=== PATIENT | female | born 1970 | race Two or more races ===

== ENCOUNTER 2019-06-27 18:53 | Emergency (ER) | payer SELFPAY ==
[~2019-06-27] VITALS: Ht 149.9 cm; Wt 55.8 kg
[~2019-06-27 18:53] MED LIST: AMOXICILLIN500 MG ORAL; BENADRYL50 MG ORAL; CLINDAMYCIN HC150 MG ORAL; PREDNISONE20 MG ORAL; RANITIDINE HCL150 MG ORAL
[2019-06-27] MEDS ORDERED: Excedrin Migraine tab ORAL ONE (19:15)
[2019-06-27] MEDS ORDERED: DiphenhydrAMINE 25mg/10ml Elixir ORAL ONE (19:15)
--- NOTE | 2019-06-27 19:20 | NUR ---
ED Nurse Note: pt presents to ED c/o ELDER x 2 weeks. pt states that the pain is mainly in the back of her head on the L side and got worse on Saturday and has not gone away since then. pt reports taking advil at home for the pain with some relief of symptoms. pt also c/o nausea without vomiting.
[2019-06-27 19:23] VITALS: BP 107/57
--- NOTE | 2019-06-27 19:25 | NUR ---
ED Nurse Note: xray at pt bedside
--- NOTE | 2019-06-27 20:05 | Diagnostic Imaging Report ---
EXAM: XR Chest, 1 View CLINICAL HISTORY: PAIN TECHNIQUE: Frontal view of the chest. COMPARISON: No relevant prior studies available. FINDINGS: Lungs: Unremarkable. No consolidation. Pleural space: Unremarkable. No pneumothorax. Heart: Unremarkable. No cardiomegaly. Mediastinum: Unremarkable. Bones/joints: Unremarkable. IMPRESSION: Normal chest x-ray.
--- NOTE | 2019-06-27 20:10 | Emergency Room Report ---
History of Present Illness General Chief Complaint: Headache Source: Patient Present Illness HPI 49-year-old female with history of type 2 diabetes currently controlled here complaining of 2 weeks of left-sided headache now radiating to posterior head and neck as well as going down left arm and left lower extremity. Denies any tingling or numbness. Denies photophobia and blurry vision. Reports that she wears eyeglasses and is up-to-date with her visits to supervisor paper testing. Complains of 1 day of palpitations however denies chest pain or shortness of breath. Denies abdominal pain however complains of nausea with onset of her intermittent headaches. Reports that the headaches are scattered throughout the day rating her pain 10 out of 10. Denies head injury. Reports that previously in the past year she has been having multiple episodes of these headaches however in the past 2 weeks it has been exacerbating. Has not yet addressed that with her primary care doctor. Has been taking Advil with minimal relief. Denies recent URI symptoms. Denies all other associated symptoms. Denies tobacco smoke, drug use, alcohol intake. Denies having any aura. Denies unilateral and generalized weakness. No motor or sensory deficits noted. Neurovascularly intact. Denies vertigo, tinnitus, hearing loss , and other associated symptoms. Allergies: Coded Allergies: No Known Allergies (Unverified , 03/22/14) Patient History Past Medical History: see triage record Past Surgical History: unable to obtain Pertinent Family History: none Last Menstrual Period: 06/20/19 Now: No : 5 Para: 2 Immunizations: UTD Reviewed Nursing Documentation: PMH: Agreed; PSxH: Agreed Nursing Documentation-PMH Past Medical History: No Stated History Review of Systems All Other Systems: negative except mentioned in HPI Physical Exam Vital Signs Date Time Temp Pulse Resp B/P (MAP) Pulse Ox O2 Delivery O2 Flow Rate FiO2 06/27/19 18:58 98.1 68 18 107/57 (74) 95 Room Air Sp02 EP Interpretation: reviewed, normal General Appearance: no apparent distress, alert, GCS 15, non-toxic Head: normocephalic, atraumatic Eyes: bilateral eye normal inspection, bilateral eye PERRL ENT: hearing grossly normal, normal pharynx, no angioedema, normal voice Neck: full range of motion, thyroid normal, no meningismus, supple/symm/no masses Respiratory: chest non-tender, lungs clear, normal breath sounds, no rhonchi, no wheezing, speaking full sentences Cardiovascular #1: regular rate, rhythm, no edema, no murmur, normal capillary refill Cardiovascular #2: 2+ carotid (R), 2+ carotid (L) Gastrointestinal: normal bowel sounds, non tender, soft, non-distended, no guarding, no rebound Rectal: deferred Genitourinary: no CVA tenderness Musculoskeletal: back normal, no calf tenderness, gait/station normal Neurologic: alert, oriented, distal neuro normal, oriented x3, sensory intact, speech normal Psychiatric: judgement/insight normal, memory normal, mood/affect normal, no suicidal/homicidal ideation Skin: no rash Lymphatic: no adenopathy Medical Decision Making PA Attestation All my diagnosis and treatment plans were reviewed ad discussed with my supervising physician Dr. Chawla Diagnostic Impression: Primary Impression: Migraine headache ER Course 49-year-old female with history of type 2 diabetes currently controlled here complaining of 2 weeks of left-sided headache now radiating to posterior head and neck as well as going down left arm and left lower extremity. Denies any tingling or numbness. Denies photophobia and blurry vision. Reports that she wears eyeglasses and is up-to-date with her visits to supervisor paper testing. Complains of 1 day of palpitations however denies chest pain or shortness of breath. Denies abdominal pain however complains of nausea with onset of her intermittent headaches. Reports that the headaches are scattered throughout the day rating her pain 10 out of 10. Denies head injury. Reports that previously in the past year she has been having multiple episodes of these headaches however in the past 2 weeks it has been exacerbating. Has not yet addressed that with her primary care doctor. Has been taking Advil with minimal relief. Denies recent URI symptoms. Denies all other associated symptoms. Denies tobacco smoke, drug use, alcohol intake. Denies having any aura. Denies unilateral and generalized weakness. No motor or sensory deficits noted. Neurovascularly intact. Denies vertigo, tinnitus, hearing loss , and other associated symptoms. Ddx considered but are not limited to: Migraine headache with aura, migraine headache without aura, tension headache, cluster headache, TBI, subarachnoid hemorrhage Vital signs: are WNL, pt. is afebrile H&PE are most consistent with: ORDERS: CT head no contrast due to patient's age, chest x-ray, EKG ER intervention: Benadryl, Excedrin extra strength, Zofran DISCHARGE: At this time pt. is stable for d/c to home. Will provide printed patient care instructions, and any necessary prescriptions. Care plan and follow up instructions have been discussed with the patient prior to discharge. EKG Diagnostic Results Rate: normal Rhythm: NSR ST Segments: no acute changes Other Impression No acute ST changes Chest X-Ray Diagnostic Results Chest X-Ray Diagnostic Results : Chest X-Ray Ordered: Yes # of Views/Limited/Complete: 1 View Indication: Other - palp EP Interpretation: Yes PA Xray: Interpretation reviewed, by supervising MD, and agrees with findings. Interpretation: no consolidation, no effusion, no pneumothorax Impression: No acute disease Electronically Signed by: Jacqueline LOZADA Scribdario Text FINDINGS: Lungs: Unremarkable. No consolidation. Pleural space: Unremarkable. No pneumothorax. Heart: Unremarkable. No cardiomegaly. Mediastinum: Unremarkable. Bones/joints: Unremarkable. IMPRESSION: Normal chest x-ray. CT/MRI/US Diagnostic Results CT/MRI/US Diagnostic Results : Imaging Test Ordered: CT head no contrast Impression COMPARISON: No relevant prior studies available. FINDINGS: Brain: Unremarkable. No hemorrhage. No significant white matter disease. No edema. Ventricles: Unremarkable. No ventriculomegaly. Bones/joints: Unremarkable. No acute fracture. Soft tissues: Unremarkable. Sinuses: Unremarkable as visualized. No acute sinusitis. Mastoid air cells: Unremarkable as visualized. No mastoid effusion. IMPRESSION: Unremarkable CT head Last Vital Signs Date Time Temp Pulse Resp B/P (MAP) Pulse Ox O2 Delivery O2 Flow Rate FiO2 06/27/19 19:23 98.1 87 18 107/57 95 Room Air Disposition: HOME, SELF-CARE Condition: Stable Patient Instructions: Migraine Headache Additional Instructions: Take medication as directed, follow-up with your primary care provider for referral to neurologist, at this time migraine headache is most likely to be the cause of your symptoms however you need to be evaluated by a neurologist. Avoid drinking alcohol, avoid eating spicy food and carbonated food. Take medication as directed if worsening symptoms return to the emergency room Jacqueline Camarena Jun 27, 2019 20:10
--- NOTE | 2019-06-27 20:33 | Diagnostic Imaging Report ---
EXAM: CT Head Without Intravenous Contrast CLINICAL HISTORY: DIZZY TECHNIQUE: Axial computed tomography images of the head/brain without intravenous contrast. CTDI is 60.0 mGy and DLP is 1274.1 mGy-cm. One or more of the following dose reduction techniques were used: automated exposure control, adjustment of the mA and/or kV according to patient size, use of iterative reconstruction technique. COMPARISON: No relevant prior studies available. FINDINGS: Brain: Unremarkable. No hemorrhage. No significant white matter disease. No edema. Ventricles: Unremarkable. No ventriculomegaly. Bones/joints: Unremarkable. No acute fracture. Soft tissues: Unremarkable. Sinuses: Unremarkable as visualized. No acute sinusitis. Mastoid air cells: Unremarkable as visualized. No mastoid effusion. IMPRESSION: Unremarkable CT head
[2019-06-27] MEDS ORDERED: IMITREX50 MG ORAL (20:38)
[2019-06-27] MEDS ORDERED: EXCEDRIN MIGRA1 EAC1 PO (20:38)
[2019-06-27] MEDS ORDERED: ZOFRAN4 M1 ORAL (20:38)
[2019-06-27 20:45] VITALS: BP 107/57
--- NOTE | 2019-06-27 20:45 | NUR ---
ER DISCHARGE NOTE: Patient cleared for DC by Dr. Chawla. Patient verbalized understanding of DC and prescription instructions. all medical devices such as ID band removed. patient AxO x 4, ambulates with steady gait, and left with all belongings
== END 2019-06-27 20:45 | disposition home or self-care (01) ==
LOC: EMR 19:30
DX: G43.909 Migraine, unspecified, not intractable, without status migrainosus (principal); R11.0 Nausea; E11.9 Type 2 diabetes mellitus without complications
CPT/HCPCS: 70450; 71045; 93005; 99284